=== PATIENT | male | born 1955 | race Caucasian/White ===

== ENCOUNTER 2025-01-08 07:20 | Day surgery (SDC) | payer MEDICARE ==
[2025-01-06 09:38] VITALS: BMI 38.2
[2025-01-08] MEDS ORDERED: Lidocaine 1% PF 5 ML VIAL ONE (08:48)
[2025-01-08] MEDS ORDERED: SUGAMMADEX SODIUM 200 MG/2 ML VIAL ONE (08:48)
[2025-01-08] MEDS ORDERED: Rocuronium Bromide 10 MG/ML (10ML VIAL) ONE (08:48)
[2025-01-08] MEDS ORDERED: Lidocaine 1% w/Epinephrine 1:200K 30 ML VIAL ONE (08:55)
[2025-01-08] MEDS ORDERED: Scopolamine 1 mg/72 hour Patch ONE (09:06)
[2025-01-08] MEDS ORDERED: CEFAZOLIN 2 GM VIAL ONE (09:19)
[2025-01-08] MEDS ORDERED: Hydrocodone-Acetamin 15 ML UDCUP ONE (11:54)
== END 2025-01-08 12:55 | disposition home or self-care (01) ==
LOC: CSHSDC 07:20
PROVIDERS: ATTEND Specialist
PROC: 0GBR0ZZ Excision of Parathyroid Gland, Open Approach (ICD-10-PCS; principal; 2025-01-08)
DX: E21.0 Primary hyperparathyroidism (principal); D35.1 Benign neoplasm of parathyroid gland; I10 Essential (primary) hypertension; I25.10 Atherosclerotic heart disease of native coronary artery without angina pectoris; E78.00 Pure hypercholesterolemia, unspecified; K21.9 Gastro-esophageal reflux disease without esophagitis; H91.90 Unspecified hearing loss, unspecified ear; G47.33 Obstructive sleep apnea (adult) (pediatric); Z87.891 Personal history of nicotine dependence; Z90.49 Acquired absence of other specified parts of digestive tract; Z98.890 Other specified postprocedural states; Z79.82 Long term (current) use of aspirin; Z79.899 Other long term (current) drug therapy
CPT/HCPCS: 60500; A6258; J1100; J3010; 88305